=== PATIENT | female | born 1945 | race Caucasian/White ===

== ENCOUNTER 2017-02-12 12:21 | Outpatient (CLI) | payer OTHER ==
[2015-09-26 08:25] VITALS: BMI 47.0
--- NOTE | 2017-02-12 14:11 | MRI ---
EXAM: MRI brain without IV contrast. DATE: 02/12/2017. HISTORY: Forgetfulness. TECHNIQUE: Sagittal T1W, axial T2W, axial FLAIR, axial T1W, axial DWI, and coronal T2W GRE sequences of the brain were obtained using 1.2 Mary magnet. No IV contrast. COMPARISON: CT C-spine 26 September 2015. FINDINGS: The lateral ventricles are enlarged. Transverse dimension across both lateral ventricles is 3.7 cm. Third ventricle and fourth ventricle are normal. Sylvian fissures and most frontal lobe sulci are mildly enlarged. ventricles, cisterns, and subarachnoid spaces are normal in size and conf iguration. No midline shift, mass effect or abnormal extra-axial fluid collection is apparent. No a cute infarct, hemorrhage or neoplasm is identified. Narrow, confluent rim of T2W/FLAIR hyperintensit y is observed in the white matter abutting each lateral ventricle, with broader areas of disease near the anterior and posterior horns. Multiple other T2W/FLAIR bright, 2-12 mm foci are scattered withi n the lees radiata, centrum semiovale, and subcortical white matter bilaterally. The shafer - white m atter differentiation is normal. The 7th/8th cranial nerve complexes, cerebellopontine angles, brain stem, and visible cervical spinal cord are normal. There is no cerebellar tonsillar ectopia. The pi tuitary gland is normal in size and signal. Corpus callosum is normal in size and configuration. Ve rtebrobasilar arterial system is somewhat tortuous. Flow voids are present in the major intracranial arteries and in the dural venous sinuses. No aneurysm, AVM or dural venous sinus thrombosis is appa rent. Distortion at the anterior margin of the globe of each eye is artifact. No definitive orbit a bnormality is identified. Right mastoid air cells are unremarkable. A few inferior left mastoid air cells have T2W bright, T1W intermediate signal. There is no acute sinusitis. No neck mass or lymph adenopathy is detected. Slight thickening of the inner table of the frontal bone appears benign. No calvarial neoplasm or acute fracture is evident. IMPRESSIONS: 1. No acute infarct, hemorrhage, neoplasm or hydrocephalus. 2. Central > peripheral cerebral atrophy. Primarily frontotemporal atrophy. 3. Moderate cerebral white matter changes - likely small vessel disease. 4. Minimal left mastoid air cell disease.
== END 2017-02-12 12:22 | disposition home or self-care (01) ==
LOC: RAD 12:21
PROVIDERS: ATTEND Internal Medicine
DX: R41.3 Other amnesia (principal)

== ENCOUNTER 2017-04-03 09:17 | Outpatient (CLI) ==
[2015-09-26 08:25] VITALS: BMI 47.0
--- NOTE | 2017-04-03 12:32 | MRI ---
EXAM: MRI right shoulder without contrast. HISTORY: Biceps pain x2 months. No history of injury. No right shoulder surgery reported. The. TECHNIQUE: Using a coil on a high field strength magnet multiplanar multisequence magnet resonance i maging was attempted of the right shoulder without intravenous or intra-articular gadolinium contrast . Examination is markedly degraded secondary to decreased esgkpq-bw-fsfae/resolution as well as aisha on degradation on multiple imaging sequences despite repeat imaging.. IMPRESSION: Incomplete non-arthrographic MR examination of the right shoulder. Examination is marke dly degraded secondary to decreased uacmll-pg-kcijz/resolution as well as motion degradation on multi ple imaging sequences despite repeat imaging. Recommendation is that the patient be brought back wit h attempted repeat imaging.
--- NOTE | 2017-04-03 12:49 | MRI ---
EXAM: MRI right humerus without contrast. HISTORY: Biceps pain x2 months. No history of injury. Prior anterior inferior right shoulder disloc ation.. TECHNIQUE: Using a coil on a high field strength magnet multiplanar multisequence large field of vie w imaging obtained through the level of the right humerus without intravenous or intra-articular gado linium contrast. Note this constitutes incomplete MR evaluation of the right shoulder as well as rig ht elbow. Overall examination is of limited diagnostic quality secondary to decreased lwaqpi-nl-zphin/resolutio n as well as motion degradation. COMPARISON: MRI right shoulder 04/03/2017.. Two-view plain film examination right shoulder 09/26/[address] right shoulder 09/26/2015.. FINDINGS: Visualized bone marrow signal intensity the right humerus shows no acute fracture, stress fracture or discrete lytic or blastic lesions. Partially visualized right glenohumeral joint effusion. In correlation with MRI right shoulder 2017 there is a full-thickness tear proximal long head of the biceps tendon. Distal tendon end retra ction approximate 3 cm from the entrance to the bicipital groove. Along the more mid to distal right humerus level the muscle bulk of the anterior and posterior compar tments of normal signal intensity. The distal insertional aspect of the biceps tendon below the right elbow joint line at the radial tuberosity not imaged on the current exam. Course of the medial neuro vascular bundle within normal limit. There is some prominent ectatic vascularity. No enlarged right axillary lymphadenopathy identified.. IMPRESSION: Examination of limited diagnostic quality secondary to decreased vaejyc-zq-pmgze/resolut ion as well as motion degradation. In correlation with MRI right shoulder 04/03/2017 there is full-thickness tear proximal long head of the biceps tendon.
== END 2017-04-03 09:18 | disposition home or self-care (01) ==
LOC: RAD 09:17
PROVIDERS: ATTEND Internal Medicine
DX: M25.511 Pain in right shoulder (principal); M79.601 Pain in right arm
CPT/HCPCS: 73218

== ENCOUNTER 2017-08-27 14:36 | Outpatient (CLI) ==
[2015-09-26 08:25] VITALS: BMI 47.0
--- NOTE | 2017-08-27 17:14 | US ---
EXAM: Thyroid ultrasound HISTORY: Enlarged thyroid COMPARISON: None TECHNIQUE: Thyroid ultrasound was performed FINDINGS: Right thyroid measures 1.6 x 1.7 x 3.6 cm. Left thyroid measures 1.3 x 1.7 x 4.0 cm. Thy roid isthmus measures 0.4 cm. Thyroid normal in echogenicity and vascularity. There are several radha ateral sub centimeter hypoechoic and mixed echogenicity nodules. Largest nodule on the right measure s up to 0.5 cm in the mid thyroid. Largest nodule on the left measures up to 0.6 cm in the inferior thyroid. Thyroid isthmus nodule measures up to 0.9 cm IMPRESSION: Bilateral sub centimeter thyroid nodules. Recommend sonographic follow-up 12 months for reevaluation
== END 2017-08-27 14:37 | disposition home or self-care (01) ==
LOC: RAD 14:36
PROVIDERS: ATTEND Internal Medicine
DX: E07.9 Disorder of thyroid, unspecified (principal)

== ENCOUNTER 2017-11-12 20:24 | Outpatient (CLI) ==
[2015-09-26 08:25] VITALS: BMI 47.0
== END 2017-11-12 20:25 | disposition home or self-care (01) ==
LOC: LAB 20:24
PROVIDERS: ATTEND Internal Medicine
DX: N39.0 Urinary tract infection, site not specified (principal)
CPT/HCPCS: 81001; 87086

== ENCOUNTER 2018-06-22 21:59 | Emergency (ER) ==
[2018-06-22 22:10] VITALS: BMI 41.0
--- NOTE | 2018-06-22 22:17 | ED.PDOC ---
General ED Provider: Dr. PHONG RAYA Chief Complaint: Non-specific Complaint Stated Complaint: UTI possible sepsis,incontinent with a strong odor of urine, [email or web address] states that patient in addition to icontinence has a UTI quite often and that in turn may cause other problems.Patient denies symptoms. Time Seen by Physician: 22:10 Mode of Arrival: Ambulance Information Source: Patient, EMT Exam Limitations: No limitations Primary Care Provider: LISA POOL Nursing and Triage Documentation Reviewed and Agree: Yes Does patient meet sepsis criteria?: No System Inflammatory Response Syndrome: Not Applicable Sepsis Protocol: For patient's 13 years and over: Temp is 96.8 and below OR 101 and greater Pulse >90 BPM Resp >20/minute Acutely Altered Mental Status Are patient's symptoms suggestive of a new infection, such as: -Pneumonia -Skin, Soft Tissue -Endocarditis -UTI -Bone, Joint Infection -Implantable Device -Acute Abdominal Infection -Wound Infection -Meningitis -Blood Stream Catheter Infection -Unknown Complaint Exam - UTI Female Complaint/Exam Onset/Duration: virgierichard says it frequent Timing: Intermittent Initial Severity: Moderate Current Severity: Mild CVA Tenderness: No Suprapubic Tenderness: No Differential Diagnoses: Cystitis, Pyelonephritis Review of Systems - Review Of Systems Constitutional: Reports: No symptoms Eyes: Reports: No symptoms Ears, Nose, Mouth, Throat: Reports: No symptoms Respiratory: Reports: No symptoms Cardiac: Reports: No symptoms GI: Reports: No symptoms : Reports: Dysuria, Incontinence Musculoskeletal: Reports: No symptoms Skin: Reports: No symptoms Neurological: Reports: No symptoms, Unable to move upper ext Hematologic/Lymphatic: Reports: No symptoms All Other Systems: Reviewed and Negative Past Medical History - Past Medical History Previously Healthy: No Endocrine: Reports: DM 2, Dyslipidemia Cardiovascular: Reports: Hypertension Respiratory: Reports: None Hematological: Reports: None Gastrointestinal: Reports: None Genitourinary: Reports: None Neuro/Psych: Reports: None Musculoskeletal: Reports: None Cancer: Reports: None Last Menstrual Period: MENOPAUSAL IN MID 40'S - Surgical History General Surgical History: Reports: None - Family History Family History: Reports: Unknown - Social History Smoking Status: Former smoker Hx Substance Use: No Alcohol Screening: None - Immunizations Tetanus Shot up to Date: No (UNSURE) Physical Exam - Physical Exam Appearance: Ill-appearing Ill-appearing: Mild Pain Distress: None Eyes: HIREN, EOMI ENT: Ears normal, Nose normal Neck: Supple Respiratory: Airway patent, Breath sounds clear Cardiovascular: RRR, Pulses normal GI/: Soft, Nontender, No masses Musculoskeletal: Normal strength, ROM intact Skin: Warm, Dry Neurological: Sensation intact Psychiatric: Affect appropriate Critical Care Note - Critical Care Note Total Time (mins): 0 Course - Course Hematology/Chemistry: 06/22/18 23:17 06/22/18 23:17 Orders, Labs, Meds: Lab Review 06/22/18 06/22/18 06/22/18 23:17 23:17 23:17 WBC 6.92 RBC 4.34 Hgb 13.2 Hct 40.4 MCV 93.1 MCH 30.4 MCHC 32.7 RDW Coeff of Vicky 13.8 Plt Count 153 Immature Gran % (Auto) 0.3 Neut % (Auto) 67.3 Lymph % (Auto) 23.4 [place] % (Auto) 6.8 Eos % (Auto) 1.9 Baso % (Auto) 0.3 Immature Gran # (Auto) 0.0 Neut # (Auto) 4.7 Lymph # (Auto) 1.6 [place] # (Auto) 0.5 Eos # (Auto) 0.1 Baso # (Auto) 0.0 Sodium 140.4 Potassium 4.02 Chloride 102.6 Carbon Dioxide 30.9 H Anion Gap 10.92 BUN 19.4 H Creatinine 1.06 Estimated GFR (MDRD) 51.00 BUN/Creatinine Ratio 18.30 Glucose 103.4 Lactic Acid 0.79 Calcium 9.16 Total Bilirubin 0.67 AST 27.1 ALT 15.2 Alkaline Phosphatase 102.7 Total Protein 6.89 Albumin 4.28 Globulin 2.61 Albumin/Globulin Ratio 1.63 Urine Color Urine Clarity Urine pH Ur Specific [place] Urine Protein Urine Glucose (UA) Urine Ketones Urine Blood Urine Nitrite Urine Bilirubin Urine Urobilinogen Ur Leukocyte Esterase Urine Microscopic WBC Ur Squamous Epith Cells Urine Bacteria 06/22/18 23:40 WBC RBC Hgb Hct MCV MCH MCHC RDW Coeff of Vicky Plt Count Immature Gran % (Auto) Neut % (Auto) Lymph % (Auto) [place] % (Auto) Eos % (Auto) Baso % (Auto) Immature Gran # (Auto) Neut # (Auto) Lymph # (Auto) [place] # (Auto) Eos # (Auto) Baso # (Auto) Sodium Potassium Chloride Carbon Dioxide Anion Gap BUN Creatinine Estimated GFR (MDRD) BUN/Creatinine Ratio Glucose Lactic Acid Calcium Total Bilirubin AST ALT Alkaline Phosphatase Total Protein Albumin Globulin Albumin/Globulin Ratio Urine Color Yellow Urine Clarity Cloudy Urine pH 7.5 Ur Specific [place] 1.015 Urine Protein Negative Urine Glucose (UA) Negative Urine Ketones Negative Urine Blood Trace-intact Urine Nitrite Positive Urine Bilirubin Negative Urine Urobilinogen 0.2 Ur Leukocyte Esterase 3+ Urine Microscopic WBC 50-100 Ur Squamous Epith Cells 10-20 Urine Bacteria 4+ Orders Category Date Time Status IV [ED IV/MEDIPORT/POWERPORT] .ONCE EMERGENCY 06/22/18 22:56 Active CBC W/ AUTO DIFF Stat LAB 06/22/18 23:17 Completed COMPREHENSIVE METABOLIC PANEL Stat LAB 06/22/18 23:17 Completed LACTIC ACID Stat LAB 06/22/18 23:17 Completed URINALYSIS C & S IF INDICATED Stat LAB 06/22/18 23:40 Completed URINE CULTURE Stat LAB 06/22/18 23:40 Received 0.9 % Sodium Chloride [Saline Flush] MEDS 06/22/18 22:56 Ordered 1 syr IVF PRN PRN Ceftriaxone Sodium [Rocephin] MEDS 06/23/18 00:13 Discontinued 1 gm .ROUTE .STK-MED ONE Ceftriaxone Sodium [Rocephin] 1 gm MEDS 06/23/18 00:02 Discontinued 0.9 % Sodium Chloride [Sodium Chloride] 50 ml IV ONCE Sodium Chloride 0.9% [Sodium Chloride] 500 ml MEDS 06/22/18 22:57 Discontinued IV BOLUS CHEST, 2 VIEWS PA & LAT Stat RADS 06/22/18 22:59 Completed Medications Generic Name Dose Route Start Last Admin Trade Name Freq PRN Reason Stop Dose Admin Sodium Chloride 1 syr 06/22/18 22:56 Saline Flush IVF PRN PRN To flush IV Discontinued Medications Generic Name Dose Route Start Last Admin Trade Name Freq PRN Reason Stop Dose Admin Sodium Chloride 500 mls @ 500 mls/hr 06/22/18 22:57 06/22/18 23:45 Sodium Chloride IV 06/22/18 23:56 500 mls/hr BOLUS STA Administration Ceftriaxone Sodium 1 gm/ 50 mls @ 75 mls/hr 06/23/18 00:02 06/23/18 00:17 Sodium Chloride IV 06/23/18 00:41 75 mls/hr ONCE STA Administration Vital Signs: Temp Pulse Resp BP Pulse Ox 06/23/18 00:30 98.2 F 64 20 165/82 H 99 06/22/18 22:30 83 18 165/72 H 99 06/22/18 22:02 59 L 20 153/64 H 96 06/22/18 22:01 98.7 F 67 20 153/59 H 99 Departure - Departure Time of Disposition: 00:56 Disposition: HOME SELF-CARE Discharge Problem: Urinary incontinence in female Instructions: Catheter-associated Urinary Tract Infection (ED) Condition: Good Pt referred to PMD for follow-up: Yes IPMP verified?: No Additional Instructions: Macrodantin 100 mg qid x 10 days. Follow up with in the office this week as discussed. Allergies/Adverse Reactions: Allergies codeine Adverse Reaction (Verified 06/22/18 22:10) Penicillins Adverse Reaction (Verified 06/22/18 22:10) venom-honey bee [bee venom (honey bee)] Adverse Reaction (Verified 06/22/18 22: 10) Home Medications: Ambulatory Orders Atorvastatin Calcium [Lipitor] 20 mg PO DAILY 06/06/15 Epinephrine [Epipen 2-Kvng] 0.3 mg IM PRN PRN 06/06/15 Metformin HCl 500 mg PO BIDAC 06/06/15 Metoprolol Tartrate [Lopressor] 12.5 mg PO BID 06/06/15 Pregabalin [Lyrica] 100 mg PO DAILY 06/06/15 Acetaminophen [Tylenol] 650 mg PO Q4H PRN 06/07/15 Solifenacin Succinate [Vesicare] 10 mg PO DAILY 06/22/18 Disposition Discussed With: Patient, Family
[2018-06-22] MEDS ORDERED: SODIUM CHLORIDE 500 ML IV STA (22:57)
--- NOTE | 2018-06-22 23:54 | DI ---
EXAM: Chest two views HISTORY: Mental status change FINDINGS: Normal cardiac and mediastinal contours. Normal pulmonary vasculature. Lungs are clear. Senescent changes of the chest wall. IMPRESSION: No acute cardiopulmonary disease.
[2018-06-23] MEDS ORDERED: ROCEPHIN 1 GM in SODIUM CHLORIDE 50 ML IV STA (00:02)
[2018-06-23] MEDS ORDERED: ROCEPHIN ONE (00:13)
[2018-06-23 00:52] VITALS: BP 165/82; TEMP 98.2
== END 2018-06-23 01:20 | disposition home or self-care (01) ==
LOC: ED 21:59
DX: N39.0 Urinary tract infection, site not specified (principal); E11.9 Type 2 diabetes mellitus without complications; E78.5 Hyperlipidemia, unspecified; I10 Essential (primary) hypertension; Z87.440 Personal history of urinary (tract) infections; Z79.899 Other long term (current) drug therapy
CPT/HCPCS: 36415; 80053; 81001; 83605; 85025; 87086; 87186; 96360; 96361; 96365; 99284